=== PATIENT | female | born 1980 | race Caucasian/White ===

== ENCOUNTER 2019-03-05 15:27 | Day surgery (SDC) | payer BC ==
[~2019-03-05] VITALS: Ht 190.5 cm; Wt 130.6 kg
[2019-03-05 16:18] VITALS: BP_SYST 139
--- NOTE | 2019-03-05 16:23 | NUR ---
Patient to ER bed 7 to gown for evaluation. Side rails up. Report given to Hetal GONG.
--- NOTE | 2019-03-05 16:28 | NUR ---
Pt [id number] ambulated into ED c/o vaginal bleeding x 2-3 days. Pt was evaluated by Dr. Garza this morning and was called to come to the hospital for a Dilation and Curettage. Skin pink dry warm and breathing even and unlabored. No other injuries complaints per pt/noted. Will continue to monitor.
--- NOTE | 2019-03-05 16:30 | NUR ---
ER Dr. Patterson at bedside examining patient.
[2019-03-05 17:27] LABS: BILIRUBIN,URINE 1+ (NEGATIVE); BLOOD, URINE 3+ (NEGATIVE); CLARITY/URINE SL CLOUDY (CLEAR); COLOR,URINE ORANGE (YELLOW); GLUCOSE,URINE NEGATIVE (NEGATIVE); KETONES,URINE 1+ (NEGATIVE); LEUKOCYTE ESTERASE ,URINE TRACE (NEGATIVE); NITRITE, URINE NEGATIVE (NEGATIVE); PROTEIN URINE 1+ (NEGATIVE)
[2019-03-05 17:28] LABS: BASOPHILS % (AUTO) 0.3 % (0.0-2.0); EOSINOPHILS # (AUTO) 0.2 K/uL (0.0-0.4); EOSINOPHILS % (AUTO) 1.2 % (0.0-4.0); HEMATOCRIT 34.2 % (36-48); HEMOGLOBIN 11.4 g/dL (12.0-16.0); LYMPHOCYTES # (AUTO) 2.9 K/uL (1.0-5.5); LYMPHOCYTES % (AUTO) 19.9 % (20.5-51.5); MEAN CORPUSCULAR HEMOGLOBIN 29 pg (27-31); MEAN CORPUSCULAR HGB CONC 34 % (32-36); MEAN CORPUSCULAR VOLUME 86 fL (79.0-98.0); MONOCYTES # (AUTO) 0.7 K/uL (0.0-1.0); MONOCYTES % (AUTO) 4.7 % (1.7-9.3); NEUTROPHILS # (AUTO) 10.7 K/uL (1.8-7.7); NEUTROPHILS % (AUTO) 73.9 % (40.0-70.0); PLATELET COUNT (AUTO) 462 K/uL (130-430); RED BLOOD CELL COUNT(AUTO) 3.97 MIL/uL (4.2-6.2); WHITE BLOOD COUNT (AUTO) 14.5 K/uL (4.8-10.8)
[2019-03-05 17:32] LABS: BACTERIA,URINE FEW /HPF (None Seen); RBC,URINE 20-50 /HPF (0-3)
--- NOTE | 2019-03-05 17:45 | NUR ---
Pt taken to OR in stable condition. Surgery packet and report endorsed to CERTIFIED [employer]OVE[employer] ADMINISTRATOR. Consent to surgery will be signed by Dr. Garza in ED per OR.
--- NOTE | 2019-03-05 17:50 | NUR ---
Patient will be admitted to care of Dr. Garza. Admitted to Outpatient surgery unit. Will go to SBAR report to be given at bedside with opportunity for questions.
[2019-03-05 18:05] VITALS: BP_SYST 141
[2019-03-05 18:09] LABS: CALCIUM 8.1 mg/dL (8.4-11.0); CREATININE 0.66 mg/dL (0.55-1.30); POTASSIUM 3.2 mmol/L (3.5-5.1)
[2019-03-05 18:14] LABS: ALBUMIN 3.1 g/dL (3.4-4.8); TOTAL BILIRUBIN 0.3 mg/dL (0.0-1.0)
[2019-03-05] MEDS ORDERED: MIDAZOLAM HCL 5 MG/5 ML VIAL IVP ONE (18:15)
[2019-03-05] MEDS ORDERED: ONDANSETRON HCL 4 MG/2 ML VIAL IVP ONE (18:15)
[2019-03-05] MEDS ORDERED: SEVOFLURANE 15 MIN GAS INH ONE (18:15)
[2019-03-05] MEDS ORDERED: DEXAMETHASONE SOD PHOSPHATE 4 MG/ML VIAL IVP ONE (18:15)
[2019-03-05] MEDS ORDERED: DOXYCYCLINE HYCLATE 100 MG VIAL IV ONE (18:15)
[2019-03-05] MEDS ORDERED: fentaNYL CITRATE 250 MCG/5 ML AMP IV ONE (18:15)
[2019-03-05] MEDS ORDERED: NS 1000 ML IV.SOLN IV ONE (18:15)
[2019-03-05] MEDS ORDERED: PROPOFOL 200MG/ 20ML VIAL (DIPRIVAN) IV ONE (18:15)
[2019-03-05] MEDS ORDERED: KETOROLAC TROMETHAMINE 30 MG VIAL IVP ONE (18:15)
[2019-03-05] MEDS ORDERED: LR 1,000 ML IV.SOLN IV ONE (18:15)
[2019-03-05] MEDS ORDERED: NS IRRIG SOLN 1000 ML IR ONE (18:15)
[2019-03-05] MEDS ORDERED: ROCURONIUM BROMIDE 10 MG/ML (ZEMURON) IV ONE (18:15)
[2019-03-05] MEDS ORDERED: NS 100 ML BAG IV ONE (18:15)
[2019-03-05] MEDS ORDERED: MEPERIDINE HCL/PF 25 MG/ML DISP.SYRIN IVP PRN (19:00)
[2019-03-05] MEDS ORDERED: HYDROmorphone 2 MG/ML VIAL IVP PRN ×2 (19:00)
[2019-03-05] MEDS ORDERED: LR 1,000 ML IV SCH (19:00)
[2019-03-05] MEDS ORDERED: HYDROmorphone 1 MG INJ. 1 MG/ML AMPUL IVP PRN (19:00)
== END 2019-03-05 20:45 | disposition home or self-care (01) ==
LOC: SED 15:27 → SDS 18:05 → SMU 20:08 → SDS 20:45
PROVIDERS: ATTEND Specialist
DX: N92.0 Excessive and frequent menstruation with regular cycle (principal); N85.2 Hypertrophy of uterus; R93.89 Abnormal findings on diagnostic imaging of other specified body structures; Z88.8 Allergy status to other drugs, medicaments and biological substances; E66.01 Morbid (severe) obesity due to excess calories; Z68.36 Body mass index [BMI] 36.0-36.9, adult; Z98.890 Other specified postprocedural states; Z79.899 Other long term (current) drug therapy
CPT/HCPCS: 36415; 58558; 80053; 81000; 84702; 85025; 86900; 86901; 87086; 88305; 99285; J1100; J1885; J2250; J2405; J2704; J3010; J3490; J7030; J7120